=== PATIENT | female | born 1965 | race Caucasian/White ===

== ENCOUNTER 2018-11-27 06:32 | Day surgery (SDC) | payer OTHER ==
[~2018-11-27 06:32] MED LIST: MITOMYCIN 5 MG INJ OP
[2018-11-27] MEDS ORDERED: BALANCED SALT SOLN 15 ML OPH IRRIG (07:00)
[2018-11-27] MEDS ORDERED: PROPOFOL 200 MG INJ (07:00)
[2018-11-27] MEDS ORDERED: PHENYLephrine 10% 5 ML OPH (08:04)
[2018-11-27] MEDS ORDERED: TOBRAMYCIN/DEXAMETH 2.5 ML OPH (08:05)
[2018-11-27] MEDS ORDERED: PROPOFOL 20 ML (08:15)
[2018-11-27] MEDS ORDERED: LIDOCAINE 2% (SDV) 5 ML INJ (08:15)
[2018-11-27] MEDS ORDERED: MIDAZOLAM 1 MG/ML 2 ML INJ (08:15)
[2018-11-27] MEDS ORDERED: ACETAMINOPHEN 500 MG TAB PO (08:30)
[2018-11-27] MEDS ORDERED: LABETALOL HCL 20MG INJ IV (08:30)
[2018-11-27] MEDS ORDERED: ALBUTEROL 0.083% (NEB) 2.5 MG/3 ML AMP HHN (08:30)
[2018-11-27] MEDS: TETRACAINE 0.5% 4 ML OPH LEFT EYE (08:30)
[2018-11-27] MEDS ORDERED: DIPHENHYDRAMINE 50 MG INJ IV (08:30)
[2018-11-27] MEDS ORDERED: OXYCODONE/ACETAMINOPHEN (5/325) TAB PO (08:30)
[2018-11-27] MEDS ORDERED: hydrALAzine 20 MG INJ IV (08:30)
[2018-11-27] MEDS: LIDOCAINE 1.5%/EPI MPF (SDV) 30 ML VIAL INJ (08:35)
[2018-11-27] MEDS: PHENYLephrine 10% 5 ML OPH LEFT EYE (08:35)
[2018-11-27] MEDS ORDERED: PHENYLephrine (100 MCG/ML) 5ML SYG (09:03)
[2018-11-27] MEDS: TOBRAMYCIN/DEXAMETH 3.5 GM OPH OINT LEFT EYE (09:14)
[2018-11-27] MEDS: FENTAnyl 50 MCG/ML VIAL IV (09:43)
[2018-11-27] MEDS: ONDANSETRON 4 MG INJ IV (09:43)
[2018-11-27] MEDS ORDERED: ACETAMINOPHEN 325 MG TAB PO (12:01)
== END 2018-11-27 10:38 | disposition home or self-care (01) ==
LOC: SDS 06:32
DX: H11.002 Unspecified pterygium of left eye (principal); J45.909 Unspecified asthma, uncomplicated
CPT/HCPCS: 65426